=== PATIENT | male | born 1965 | race Caucasian/White ===

== ENCOUNTER 2017-03-19 10:45 | Emergency (ER) | payer SELFPAY ==
[~2017-03-19] VITALS: Ht 177.8 cm; Wt 100.0 kg
[~2017-03-19 10:45] MED LIST: BUPROPION75 MG PO; CITALOPRAM20 MG PO; HYDROCHLOROT25 MG PO; LANTUS100 MG/ML SC; LOSARTAN POT25 MG PO; METFORMIN500 MG PO
[2017-03-19] MEDS ORDERED: BACTRIM DS1 TAB PO (11:26)
[2017-03-19] MEDS ORDERED: BUDEPRION150 MG PO (11:35)
[2017-03-19] MEDS ORDERED: DULOXETINE HCL60 MG PO (11:36)
[2017-03-19] MEDS ORDERED: CLONIDINE0.3 MG PO (11:36)
[2017-03-19] MEDS ORDERED: DILAUDID4 MG PO (11:37)
[2017-03-19] MEDS ORDERED: GENERLAC10 GM/15 M PO (11:38)
[2017-03-19] MEDS ORDERED: HYDROXYZ PAM50 M1 PO (11:38)
[2017-03-19] MEDS ORDERED: METOPROLOL TAR100 MG PO (11:39)
[2017-03-19] MEDS ORDERED: LOSARTAN POT100 MG PO (11:39)
[2017-03-19] MEDS ORDERED: OPANA ER (CRUSH10 MG PO (11:40)
[2017-03-19] MEDS ORDERED: LEVEMIR100 UNIT/M SC (11:41)
[2017-03-19] MEDS ORDERED: TAMSULOSIN HCL0.4 MG PO (11:41)
[2017-03-19] MEDS ORDERED: SEROQUEL100 MG PO (11:41)
[2017-03-19] MEDS ORDERED: LORTAB 5/3255 MG PO (11:44)
[2017-03-19 11:45] VITALS: BP 132/77
== END 2017-03-19 11:45 | disposition home or self-care (01) | DRG 603 ==
LOC: ED 10:45
DX: L03.114 Cellulitis of left upper limb (principal); M79.642 Pain in left hand; X58.XXXA Exposure to other specified factors, initial encounter; Y93.H2 Activity, gardening and landscaping; Y92.007 Garden or yard of unspecified non-institutional (private) residence as the place of occurrence of the external cause

== ENCOUNTER 2017-10-24 14:51 | Emergency (ER) | payer MEDICARE ==
[~2017-10-24] VITALS: Ht 177.8 cm; Wt 104.5 kg
[~2017-10-24 14:51] MED LIST changes: +BACTRIM DS1 TAB PO; +BUDEPRION150 MG PO; +CLONIDINE0.3 MG PO; +DILAUDID4 MG PO; +DULOXETINE HCL60 MG PO; +GENERLAC10 GM/15 M PO; +HYDROXYZ PAM50 M1 PO; +LEVEMIR100 UNIT/M SC; +LORTAB 5/3255 MG PO; +LOSARTAN POT100 MG PO; +METOPROLOL TAR100 MG PO; +OPANA ER (CRUSH10 MG PO; +SEROQUEL100 MG PO; +TAMSULOSIN HCL0.4 MG PO
[2017-10-24 15:00] VITALS: BP 132/89
[2017-10-24 15:44] LABS: HEMATOCRIT 41.4 % (39.0-50.0); HEMOGLOBIN 14.5 g/dl (14.0-18.0); IMMATURE GRANULOCYTES 1.3 % (0.0-1.0); MEAN CELL VOLUME 89.8 fL CALC (80.0-100.0); MEAN CORPUSCULAR HGB 31.5 pG CALC (26.0-32.0); NEUT# 2.88 thou/uL (1.82-7.42); RED BLOOD COUNT 4.61 mill/uL (4.70-6.10); RED CELL DISTRI WIDTH 12.5 % (11.5-15.5)
[2017-10-24 16:02] LABS: ALBUMIN 4.3 g/dL (3.2-5.0); ALKALINE PHOSPHATASE 104 u/l (38-126); ANION GAP 18 (6-22 (CALC)); BILIRUBIN, TOTAL 0.6 mg/dL (0.0-1.4); BUN 20 mg/dL (9-20); BUN/CREATININE RATIO 14 (12-20 (CALC)); CARBON DIOXIDE 20 mmol/l (22-30); CHLORIDE 105 mmol/l (95-108); CREATININE 1.4 mg/dL (0.7-1.3); GFR 53 ML/MIN (>=60 (CALC)); GFR FOR AFR.AMER. > 60 ML/MIN (>=60 (CALC)); POTASSIUM 4.4 mmol/l (3.5-5.1); SGOT/AST 33 u/l (17-59); SGPT/ALT 63 u/l (21-72); SODIUM 139 mmol/l (137-146); TOTAL PROTEIN 8.1 g/dL (6.3-8.2)
[2017-10-24] MEDS ORDERED: HUMALOG100 MG/ML SC (17:22)
== END 2017-10-24 18:20 | disposition home or self-care (01) ==
LOC: ED 14:51
DX: E11.649 Type 2 diabetes mellitus with hypoglycemia without coma (principal); I10 Essential (primary) hypertension; Z79.4 Long term (current) use of insulin

== ENCOUNTER 2018-04-30 10:25 | Emergency (ER) | payer MEDICARE ==
[~2018-04-30] VITALS: Ht 177.8 cm; Wt 100.0 kg
[~2018-04-30 10:25] MED LIST changes: +HUMALOG100 MG/ML SC
[2018-04-30] MEDS ORDERED: TAMSULOSIN HCL0.4 MG PO (10:35)
[2018-04-30] MEDS ORDERED: TORADOL PO (11:27)
[2018-04-30] MEDS ORDERED: CLEOCIN300 MG PO (11:27)
[2018-04-30 11:34] VITALS: BP 128/82
== END 2018-04-30 11:40 | disposition home or self-care (01) ==
LOC: ED 10:25
DX: S60.221A Contusion of right hand, initial encounter (principal); T23.021A Burn of unspecified degree of single right finger (nail) except thumb, initial encounter; E11.9 Type 2 diabetes mellitus without complications; I10 Essential (primary) hypertension; F17.200 Nicotine dependence, unspecified, uncomplicated; W22.09XA Striking against other stationary object, initial encounter; Y92.009 Unspecified place in unspecified non-institutional (private) residence as the place of occurrence of the external cause; X19.XXXA Contact with other heat and hot substances, initial encounter